=== PATIENT | female | born 1990 | race Two or more races ===

== ENCOUNTER 2018-12-19 12:05 | Inpatient (IN) | payer BC ==
[2018-12-19] MEDS ORDERED: Nalbuphine 20 MG/ML 1 ML Syringe IVPUSH PRN (12:24)
[2018-12-19] MEDS ORDERED: Sodium Chloride 0.9% 10 ML Syringe FLUSH PRN (12:24)
[2018-12-19] MEDS ORDERED: Ondansetron 4 MG/2 ML SDV IVPUSH PRN (12:24)
--- NOTE | 2018-12-19 12:26 | PCM.LDHP ---
L&D History of Present Illness - General Date of Service: 12/19/18 Admit Problem/Dx: Patient Status Order with Admit Dx/Problem 12/19/18 12:24 Patient Status [ADT] Routine Admission Diagnosis/Problem Admission Diagnosis/Problem Normal Source of Information: Patient History Limitations: Reports: No Limitations - History of Present Illness Introduction:: Patient is a 28-year-old at 39-4/7 weeks gestation who was seen in clinic today for complaints of decreased movement. NST with accelerations, but some questionable decelerations. She was counseled on options and did elect to proceed to labor and delivery for induction. She is otherwise doing well currently and with no changes since I saw her in clinic. - Related Data Allergies/Adverse Reactions: Allergies Allergy/AdvReac Type Severity Reaction Status Date / Time No Known Allergies Allergy Verified 12/19/18 13:40 Home Medications: Home Meds Pnv No.122/Iron/Folic Acid [ Multi Tablet] 1 each PO DAILY 12/19/18 [ History] Past Medical History MARBLEIZER History: Reports: : 2 Para: 1 LMP (Approximate): - Past Surgical History Musculoskeletal Surgical History: Reports: Other (See Below) (Procedure on lower leg as a teenager) Social & Family History - Tobacco Use Smoking Status *Q: Never Smoker - Alcohol Use Alcohol Use History: No - Recreational Drug Use Recreational Drug Use: No - Living Situation & Occupation Occupation: Employed H&P Review of Systems - Review of Systems: Review Of Systems: See Below General: Reports: No Symptoms Pulmonary: Reports: No Symptoms Cardiovascular: Reports: No Symptoms Gastrointestinal: Reports: No Symptoms Genitourinary: Reports: Other (slight bloody discharge) Musculoskeletal: Reports: No Symptoms Psychiatric: Reports: No Symptoms Neurological: Reports: No Symptoms L&D Exam - Exam Exam: See Below - OB Specific Contraction Intensity: Irritability Movement: Active Heart Tones: Present Heart Tones per Min: 150 Heart Rate (FHR) Variability: Moderate (6-25 bmp) Presentation: Vertex - Solorzano Score Solorzano Score Cervix Position: Midposition Solorzano Score Consistency: Medium Solorzano Score Effacement: 51-70% Solorzano Score Dilation: 3-4 cm Solorzano Score Infant's Station: -2 Solorzano Score Total: 7 - Exam General: Alert, Oriented, Cooperative Lungs: Clear to Auscultation, Normal Respiratory Effort Cardiovascular: Regular Rate, Regular Rhythm GI/Abdominal Exam: Soft, Non-Tender Genitourinary: Normal external exam Extremities: Normal Inspection Skin: Warm, Dry, Intact - Patient Data Result Diagrams: 12/19/18 12:35 - Problem List (1) 39 weeks gestation of SNOMED Code(s): 22830989 ICD Code: Z3A.39 - 39 WEEKS GESTATION OF Status: Acute Current Visit: Yes (2) Rh negative state in antepartum period SNOMED Code(s): 910568694 ICD Code: O26.899 - OTH RELATED CONDITIONS, UNSPECIFIED TRIMESTER; Z67.91 - UNSPECIFIED BLOOD TYPE, RH NEGATIVE Status: Acute Current Visit: Yes (3) Rubella non-immune status, antepartum SNOMED Code(s): 345133467 ICD Code: O99.89 - OTH DISEASES AND CONDITIONS COMPL PREG/CHLDBRTH; Z28.3 - UNDERIMMUNIZATION STATUS Status: Acute Current Visit: Yes (4) GBS (group B Streptococcus carrier), +RV culture, currently SNOMED Code(s): 4413207184197, 087897948, 5931668632686 ICD Code: O99.820 - STREPTOCOCCUS B CARRIER STATE COMPLICATING Status: Acute Current Visit: Yes Problem List Initiated/Reviewed/Updated: Yes Orders Last 24hrs: Active Orders 24 hr Category Date Time Status Patient Status [ADT] Routine ADT 12/19/18 12:24 Ordered Activity as Tolerated [RC] PFP Care 12/19/18 12:24 Ordered Communication Order [RC] ASDIRECTED Care 12/19/18 12:24 Ordered Heart Tones [RC] ASDIRECTED Care 12/19/18 12:25 Ordered Non Stress Test [RC] PER UNIT ROUTINE Care 12/19/18 12:24 Ordered Notify Provider [RC] PFP Care 12/19/18 12:24 Ordered Notify Provider [RC] PRN Care 12/19/18 12:24 Ordered Peripheral IV Care [RC] . DIRECTED Care 12/19/18 12:25 Ordered Vital Signs [RC] PER UNIT ROUTINE Care 12/19/18 12:24 Ordered Regular Diet [DIET] Diet 12/19/18 Lunch Ordered CBC W/O DIFF,HEMOGRAM [HEME] Routine Lab 12/19/18 12:24 Ordered RAPID PLASMA REAGIN,RPR [CHEM] Routine Lab 12/19/18 12:24 Ordered TYPE AND SCREEN [BBK] Routine Lab 12/19/18 12:24 Ordered Lactated Ringers [Ringers, Lactated] 1,000 ml Med 12/19/18 12:30 Ordered IV ASDIRECTED Nalbuphine [Nubain] Med 12/19/18 12:24 Ordered 10 mg IVPUSH Q2H PRN Ondansetron [Zofran] Med 12/19/18 12:24 Ordered 4 mg IVPUSH Q4H PRN Oxytocin/Lactated Ringers [Pitocin in LR 10 Units/1,000 Med 12/19/18 12:30 Ordered ML] 10 unit in 1,000 ml IV .CONTINUOUS Sodium Chloride 0.9% [Saline Flush] Med 12/19/18 12:24 Ordered 10 ml FLUSH ASDIRECTED PRN Electronic Heart Tones Ext w TOCO [WOMSER] Oth 12/19/18 12:24 Ordered Routine Electronic Heart Tones Internal [WOMSER] Per Unit Oth 12/19/18 12:24 Ordered Routine Peripheral IV Insertion Adult [OM.PC] Routine Oth 12/19/18 12:24 Ordered Resuscitation Status Routine Resus Stat 12/19/18 12:24 Ordered Assessment/Plan Comment:: * Labs to be drawn * GBS positive, will start ampicillin for prophylaxis * AROM and Pitocin for induction * Pain management per patient preference * Anticipate * MMR following delivery * Will assess for need for additional RhoGAM after delivery
[2018-12-19] MEDS ORDERED: Lactated Ringers 1,000 ML IV SCH (12:30)
[2018-12-19] MEDS ORDERED: Oxytocin/Lactated Ringers 10 UNIT/1,000 ML BAG IV SCH ×2 (12:30→14:45)
[2018-12-19] MEDS ORDERED: Sodium Chloride 0.9% 100 ML ONE (12:56)
[2018-12-19] MEDS ORDERED: Ampicillin 2 GM AdvVial IV ONE (12:56)
[2018-12-19] MEDS ORDERED: Ampicillin 2 GM in Sodium Chloride 0.9% 100 ML IV SCH (13:00)
[2018-12-19] MEDS: Ampicillin 1 GM in Sodium Chloride 0.9% 100 ML IV SCH (17:00)
[2018-12-19] MEDS ORDERED: diphenhydrAMINE 50 MG/ML SDV IVPUSH PRN (20:09)
[2018-12-19] MEDS ORDERED: ePHEDrine 50 MG/ML SDV IVPUSH PRN (20:09)
[2018-12-19] MEDS ORDERED: fentaNYL 100 MCG/2 ML SDV EPIDUR PRN (20:09)
[2018-12-19] MEDS ORDERED: Bupivacaine/fentaNYL/NS 100 ML Bag EPIDUR SCH (20:15)
[2018-12-19] MEDS ORDERED: Oxytocin 10 Units/1 ML SDV ONE (20:48)
--- NOTE | 2018-12-19 21:04 | PCM.DEL ---
L & D Note - General Info Date of Service: 12/19/18 - Delivery Note Labor: Induced by ARM, Induced by Oxytocin Delivery Outcome: Livebirth Infant Delivery Method: Spontaneous Vaginal Delivery-Single Infant Delivery Mode: Spontaneous Presentation: Left Occiput Anterior (NATALY) (compound with posterior hand) Nuchal Cord: None Anesthesia Type: None Amniotic Fluid Description: Clear Episiotomy Type: None Laceration: None Placenta: Intact, Spontaneous Cord: 3 Vessels Estimated Blood Loss: 250 [place]: Bulb Syringe, Stimulated, Warmed, [place] Used, Warmer Used Score 1 min: 8 Score 5 min: 9 Delivery Comments (Free Text/Narrative):: Patient found to be complete and began pushing. With maternal pushing effort head delivered from an NATALY presentation. No nuchal cord present. With gentle downward traction the shoulders and body delivered. Infant placed on maternal abdomen. Cord clamped and cut. Cord blood obtained. Placenta allowed time to separate and expelled intact. Inspection of the perineum showed no lacerations. - General Info Date of Service: 12/19/18 - Patient Data Vitals - Most Recent: Last Vital Signs Temp 36.8 C 12/19/18 12:24 Pulse 101 H 12/19/18 12:24 Resp 16 12/19/18 12:24 BP 124/69 12/19/18 12:24 Pulse Ox 98 12/19/18 12:24 Weight - Most Recent: 102.784 kg I&O - Last 24 Hours: Intake & Output 12/19/18 12/19/18 12/19/18 06:59 14:59 22:59 Intake Total 640 Balance 640 Lab Results Last 24 Hours: Laboratory Results - last 24 hr 12/19/18 12/19/18 Range/Units 12:35 12:35 WBC 10.77 H (3.98-10.04) K/mm3 RBC 3.92 L (3.98-5.22) M/mm3 Hgb 10.8 L (11.2-15.7) gm/L Hct 32.7 L (34.1-44.9) % MCV 83.4 (79.4-94.8) fl MCH 27.6 (25.6-32.2) pg MCHC 33.0 (32.2-35.5) g/dl RDW Std Deviation 41.2 (36.4-46.3) fL Plt Count 240 (182-369) K/mm3 MPV 11.6 (9.4-12.3) fl Blood Type AB POSITIVE Gel Antibody Screen Negative Med Orders - Current: Current Medications Diphenhydramine HCl (Benadryl) 25 mg IVPUSH Q6H PRN PRN Reason: pruritis Ephedrine Sulfate (Ephedrine Sulfate) 5 mg IVPUSH ASDIRECTED PRN PRN Reason: Hypotension Fentanyl (Sublimaze) 100 mcg EPIDUR Q3H PRN PRN Reason: Pain Fentanyl/Bupivacaine HCl (Fentanyl/Bupivacaine/Ns 2 Mcg-0.125% 100 Ml) 100 ml EPIDUR ASDIRECTED TEAGAN Lactated Ringer's (Ringers, Lactated) 1,000 mls @ 100 mls/hr IV ASDIRECTED TEAGAN Last Admin: 12/19/18 14:56 Dose: 40 mls/hr Oxytocin/Lactated Ringer's (Pitocin In Lr 10 Units/1,000 Ml) 10 unit in 1,000 mls @ 500 mls/hr IV .CONTINUOUS TEAGAN Ampicillin Sodium 1 gm/ Sodium (Chloride) 100 mls @ 200 mls/hr IV Q4H TEAGAN Last Admin: 12/19/18 17:00 Dose: 200 mls/hr Oxytocin/Lactated Ringer's (Pitocin In Lr 10 Units/1,000 Ml) 10 unit in 1,000 mls @ 12 mls/hr IV TITRATE TEAGAN; Protocol Last Titration: 12/19/18 18:20 Dose: 12 munits/min, 72 mls/hr Nalbuphine HCl (Nubain) 10 mg IVPUSH Q2H PRN PRN Reason: pain Ondansetron HCl (Zofran) 4 mg IVPUSH Q4H PRN PRN Reason: Nausea/Vomiting Sodium Chloride (Saline Flush) 10 ml FLUSH ASDIRECTED PRN PRN Reason: Keep Vein Open Discontinued Medications Ampicillin Sodium (Ampicillin) Confirm Administered Dose 2 gm IV .STK-MED ONE Stop: 12/19/18 12:57 Last Admin: 12/19/18 16:16 Dose: Not Given Ampicillin Sodium 2 gm/ Sodium (Chloride) 100 mls @ 200 mls/hr IV NOW TEAGAN Stop: 12/19/18 14:00 Last Admin: 12/19/18 13:03 Dose: 200 mls/hr Sodium Chloride (Normal Saline) Confirm Administered Dose 100 mls @ as directed .ROUTE .STK-MED ONE Stop: 12/19/18 12:57 Last Admin: 12/19/18 16:16 Dose: Not Given Influenza Virus Vaccine (Pharmacy To Dose - Influenza Vaccine) 1 each IM ONETIME ONE Stop: 12/19/18 13:54 Influenza Virus Vaccine (Fluzone Quad [id number] Syringe) 60 mcg IM .ONCE ONE Stop: 12/19/18 14:16 Oxytocin (Pitocin) Confirm Administered Dose 10 unit .ROUTE .STK-MED ONE Stop: 12/19/18 20:49 - Problem List & Annotations (1) 39 weeks gestation of SNOMED Code(s): 82717735 Code(s): Z3A.39 - 39 WEEKS GESTATION OF Status: Acute Current Visit: Yes (2) Rh negative state in antepartum period SNOMED Code(s): 864537357 Code(s): O26.899 - OTH RELATED CONDITIONS, UNSPECIFIED TRIMESTER; Z67.91 - UNSPECIFIED BLOOD TYPE, RH NEGATIVE Status: Acute Current Visit: Yes (3) Rubella non-immune status, antepartum SNOMED Code(s): 628527221 Code(s): O99.89 - OTH DISEASES AND CONDITIONS COMPL PREG/CHLDBRTH; Z28.3 - UNDERIMMUNIZATION STATUS Status: Acute Current Visit: Yes (4) GBS (group B Streptococcus carrier), +RV culture, currently SNOMED Code(s): 5195738830837, 328162552, 1611516734553 Code(s): O99.820 - STREPTOCOCCUS B CARRIER STATE COMPLICATING Status: Acute Current Visit: Yes (5) Vaginal delivery SNOMED Code(s): 988747832 Code(s): O80 - ENCOUNTER FOR FULL-TERM UNCOMPLICATED DELIVERY Status: Acute Current Visit: No - Problem List Review Problem List Initiated/Reviewed/Updated: Yes - My Orders Last 24 Hours: My Active Orders 12/19/18 12:24 Patient Status [ADT] Routine Activity as Tolerated [RC] PFP Communication Order [RC] ASDIRECTED Notify Provider [RC] PFP Notify Provider [RC] PRN Vital Signs [RC] PER UNIT ROUTINE Nalbuphine [Nubain] 10 mg IVPUSH Q2H PRN Ondansetron [Zofran] 4 mg IVPUSH Q4H PRN Sodium Chloride 0.9% [Saline Flush] 10 ml FLUSH ASDIRECTED PRN Electronic Heart Tones Ext w TOCO [WOMSER] Routine Electronic Heart Tones Internal [WOMSER] Per Unit Routine Peripheral IV Insertion Adult [OM.PC] Routine Resuscitation Status Routine 12/19/18 12:25 Peripheral IV Care [RC] Q2HR 12/19/18 12:30 Lactated Ringers [Ringers, Lactated] 1,000 ml IV ASDIRECTED Oxytocin/Lactated Ringers [Pitocin in LR 10 Units/1,000 ML] 10 unit in 1,000 ml IV .CONTINUOUS 12/19/18 12:35 RAPID PLASMA REAGIN,RPR [CHEM] Routine 12/19/18 13:53 Influenza Vaccine Charge [RC] .DISCHARGE 12/19/18 14:45 Oxytocin/Lactated Ringers [Pitocin in LR 10 Units/1,000 ML] 10 unit in 1,000 ml IV TITRATE 12/19/18 17:00 Ampicillin 1 gm Sodium Chloride 0.9% [Normal Saline] 100 ml IV Q4H 12/19/18 20:58 Patient Status Manage Transfer [TRANSFER] Routine 12/19/18 Lunch Regular Diet [DIET] - Assessment Assessment:: PPD#0 from - Plan Plan:: * Routine cares * Encourage breast feeding * MMR following prior to discharge * Will assess for need for additional RhoGAM - baby blood type pending
[2018-12-19] MEDS ORDERED: Benzocaine/Menthol 20%-0.5% Spray 56 GM Canister TOP PRN (21:20)
[2018-12-19] MEDS ORDERED: Witch Hazel Medicated Pads 100/Jar TOP PRN (21:20)
[2018-12-19] MEDS ORDERED: Docusate Sodium 100 MG Cap PO PRN (21:20)
[2018-12-19] MEDS ORDERED: Acetaminophen 325 MG Tab PO PRN (21:20)
[2018-12-19] MEDS ORDERED: Lanolin 100% Cream 7 GM Tube TOP PRN (21:20)
[2018-12-20] MEDS ORDERED: Oxytocin 10 Units/1 ML SDV IM ONE (01:49)
[2018-12-20] MEDS: Ibuprofen 600 MG Tab PO PRN ×2 (02:47→19:45)
[2018-12-20] MEDS: Ampicillin 1 GM in Sodium Chloride 0.9% 100 ML IV SCH (03:47)
--- NOTE | 2018-12-20 05:15 | PCM.PNPP ---
- General Info Date of Service: 12/20/18 Functional Status: Reports: Pain Controlled - Review of Systems General: Reports: No Symptoms Pulmonary: Reports: No Symptoms Cardiovascular: Reports: No Symptoms Gastrointestinal: Reports: No Symptoms Genitourinary: Reports: No Symptoms Musculoskeletal: Reports: No Symptoms Neurological: Reports: No Symptoms - Patient Data Vital Signs - Most Recent: Last Vital Signs Temp 37.1 C 12/20/18 03:00 Pulse 79 12/20/18 02:41 Resp 16 12/20/18 02:41 BP 115/57 L 12/20/18 02:41 Pulse Ox 99 12/20/18 02:41 Weight - Most Recent: 102.784 kg I&O - Last 24 Hours: Intake & Output 12/19/18 12/19/18 12/20/18 14:59 22:59 06:59 Intake Total 1840 Balance 1840 Lab Results - Last 24 Hours: Laboratory Results - last 24 hr 12/19/18 12/19/18 Range/Units 12:35 12:35 WBC 10.77 H (3.98-10.04) K/mm3 RBC 3.92 L (3.98-5.22) M/mm3 Hgb 10.8 L (11.2-15.7) gm/L Hct 32.7 L (34.1-44.9) % MCV 83.4 (79.4-94.8) fl MCH 27.6 (25.6-32.2) pg MCHC 33.0 (32.2-35.5) g/dl RDW Std Deviation 41.2 (36.4-46.3) fL Plt Count 240 (182-369) K/mm3 MPV 11.6 (9.4-12.3) fl Blood Type AB POSITIVE Gel Antibody Screen Negative Med Orders - Current: Current Medications Acetaminophen (Tylenol) 650 mg PO Q4H PRN PRN Reason: mild pain or fever Benzocaine/Menthol (Dermoplast Pain Relief [place]) 0 gm TOP ASDIRECTED PRN PRN Reason: Perineal Comfort Measure Last Admin: 12/19/18 23:10 Dose: 1 canister Docusate Sodium (Colace) 100 mg PO BID PRN PRN Reason: Constipation Emollient Ointment (Lansinoh Hpa) 0 gm TOP ASDIRECTED PRN PRN Reason: Sore Nipples Ibuprofen (Motrin) 600 mg PO Q6H PRN PRN Reason: Mild pain or fever Last Admin: 12/20/18 02:47 Dose: 600 mg Measles/Mumps/Rubella Vaccine Live (M-M-R Ii Vaccine) 0.5 ml SUBCUT .ONCE ONE Stop: 12/21/18 08:01 Vivek Hameed (Tucks) 1 pad TOP ASDIRECTED PRN PRN Reason: Hemorrhoid pain Last Admin: 12/19/18 23:10 Dose: 1 tub Discontinued Medications Ampicillin Sodium (Ampicillin) Confirm Administered Dose 2 gm IV .STK-MED ONE Stop: 12/19/18 12:57 Last Admin: 12/19/18 16:16 Dose: Not Given Diphenhydramine HCl (Benadryl) 25 mg IVPUSH Q6H PRN PRN Reason: pruritis Ephedrine Sulfate (Ephedrine Sulfate) 5 mg IVPUSH ASDIRECTED PRN PRN Reason: Hypotension Fentanyl (Sublimaze) 100 mcg EPIDUR Q3H PRN PRN Reason: Pain Fentanyl/Bupivacaine HCl (Fentanyl/Bupivacaine/Ns 2 Mcg-0.125% 100 Ml) 100 ml EPIDUR ASDIRECTED TEAGAN Lactated Ringer's (Ringers, Lactated) 1,000 mls @ 100 mls/hr IV ASDIRECTED [facility] Last Admin: 12/19/18 14:56 Dose: 40 mls/hr Oxytocin/Lactated Ringer's (Pitocin In Lr 10 Units/1,000 Ml) 10 unit in 1,000 mls @ 500 mls/hr IV .CONTINUOUS [facility] Ampicillin Sodium 2 gm/ Sodium (Chloride) 100 mls @ 200 mls/hr IV NOW [facility] Stop: 12/19/18 14:00 Last Admin: 12/19/18 13:03 Dose: 200 mls/hr Ampicillin Sodium 1 gm/ Sodium (Chloride) 100 mls @ 200 mls/hr IV Q4H [facility] Last Admin: 12/20/18 03:47 Dose: Not Given Sodium Chloride (Normal Saline) Confirm Administered Dose 100 mls @ as directed .ROUTE .STK-MED ONE Stop: 12/19/18 12:57 Last Admin: 12/19/18 16:16 Dose: Not Given Oxytocin/Lactated Ringer's (Pitocin In Lr 10 Units/1,000 Ml) 10 unit in 1,000 mls @ 12 mls/hr IV TITRATE TEAGAN; Protocol Last Titration: 12/19/18 20:10 Dose: 0 munits/min, 0 mls/hr Influenza Virus Vaccine (Pharmacy To Dose - Influenza Vaccine) 1 each IM ONETIME ONE Stop: 12/19/18 13:54 Influenza Virus Vaccine (Fluzone Quad [id number] Syringe) 60 mcg IM .ONCE ONE Stop: 12/19/18 14:16 Nalbuphine HCl (Nubain) 10 mg IVPUSH Q2H PRN PRN Reason: pain Ondansetron HCl (Zofran) 4 mg IVPUSH Q4H PRN PRN Reason: Nausea/Vomiting Oxytocin (Pitocin) Confirm Administered Dose 10 unit .ROUTE .STK-MED ONE Stop: 12/19/18 20:49 Last Admin: 12/20/18 01:57 Dose: Not Given Oxytocin (Pitocin) 10 unit IM ONETIME ONE Stop: 12/20/18 01:50 Last Admin: 12/20/18 01:54 Dose: 10 unit Sodium Chloride (Saline Flush) 10 ml FLUSH ASDIRECTED PRN PRN Reason: Keep Vein Open - Infant Interaction Infant Disposition, : in Room with Family Infant Interaction: Holding Infant Infant Feeding: Attempted ; Nursed Fair/Poor Support Person: - Recovery Exam Fundal Tone: Firm Fundal Level: 1 Fingerbreadths Below Umbilicus Fundal Placement: Midline Lochia Amount: Small Lochia Color: Rubra/Red Perineum Description: Intact, Minimal Bruising/Swelling Episiotomy/Laceration: None Bladder Status: Voiding Urinary Elimination: Voided - Exam General: Alert, Oriented, Cooperative GI/Abdominal Exam: Soft, Non-Tender Extremities: Normal Inspection Skin: Warm, Dry, Intact - Problem List & Annotations (1) 39 weeks gestation of SNOMED Code(s): 14106403 Code(s): Z3A.39 - 39 WEEKS GESTATION OF Status: Acute Current Visit: Yes (2) Rh negative state in antepartum period SNOMED Code(s): 402081800 Code(s): O26.899 - OTH RELATED CONDITIONS, UNSPECIFIED TRIMESTER; Z67.91 - UNSPECIFIED BLOOD TYPE, RH NEGATIVE Status: Acute Current Visit: Yes (3) Rubella non-immune status, antepartum SNOMED Code(s): 477975363 Code(s): O99.89 - OTH DISEASES AND CONDITIONS COMPL PREG/CHLDBRTH; Z28.3 - UNDERIMMUNIZATION STATUS Status: Acute Current Visit: Yes (4) GBS (group B Streptococcus carrier), +RV culture, currently SNOMED Code(s): 4845181678543, 399779128, 8267767618377 Code(s): O99.820 - STREPTOCOCCUS B CARRIER STATE COMPLICATING Status: Acute Current Visit: Yes (5) Vaginal delivery SNOMED Code(s): 378347304 Code(s): O80 - ENCOUNTER FOR FULL-TERM UNCOMPLICATED DELIVERY Status: Acute Current Visit: No - Problem List Review Problem List Initiated/Reviewed/Updated: Yes - My Orders Last 24 Hours: My Active Orders 12/19/18 12:24 Resuscitation Status Routine 12/19/18 12:35 RAPID PLASMA REAGIN,RPR [CHEM] Routine 12/19/18 13:53 Influenza Vaccine Charge [RC] .DISCHARGE 12/19/18 21:20 Activity as Tolerated [RC] PER UNIT ROUTINE Vital Signs [RC] 21,03,09,15 Acetaminophen [Tylenol] 650 mg PO Q4H PRN Benzocaine/Menthol [Dermoplast Pain Relief [place]] See Dose Instructions TOP ASDIRECTED PRN Docusate Sodium [Colace] 100 mg PO BID PRN Ibuprofen [Motrin] 600 mg PO Q6H PRN Lanolin [Lansinoh HPA] See Dose Instructions TOP ASDIRECTED PRN Witch Zari [Tucks] 1 pad TOP ASDIRECTED PRN Assess Lochia [WOMSER] Per Unit Routine Assess Uterine Involution [WOMSER] Per Unit Routine Breast Pump [WOMSER] Per Unit Routine Heat Therapy [OM.PC] PRN Ice Therapy [OM.PC] Per Unit Routine Perineal Care [OM.PC] Per Unit Routine Peripheral IV Discontinue [OM.PC] Routine Sitz Bath [OM.PC] Per Unit Routine 12/19/18 Dinner Regular Diet [DIET] 12/20/18 21:20 Heat Therapy [OM.PC] PRN 12/21/18 08:00 Measles, Mumps & Rubella [M-M-R II Vaccine] 0.5 ml SUBCUT .ONCE ONE - Assessment Assessment:: PPD#1 from - Plan Plan:: * Routine cares * Encourage breast feeding * MMR following prior to discharge * Baby Rh Negative, no need for Rhogam
--- NOTE | 2018-12-21 06:58 | PCM.PNPP ---
- General Info Date of Service: 12/21/18 Functional Status: Reports: Pain Controlled, Tolerating Diet, Ambulating, Urinating - Review of Systems General: Reports: No Symptoms Pulmonary: Reports: No Symptoms Cardiovascular: Reports: No Symptoms Gastrointestinal: Reports: No Symptoms Genitourinary: Reports: No Symptoms Musculoskeletal: Reports: No Symptoms Neurological: Reports: No Symptoms - Patient Data Vital Signs - Most Recent: Last Vital Signs Temp 36.7 C 12/21/18 03:01 Pulse 72 12/21/18 03:01 Resp 14 12/21/18 03:01 BP 128/59 L 12/21/18 03:01 Pulse Ox 99 12/21/18 03:01 Weight - Most Recent: 102.784 kg I&O - Last 24 Hours: Intake & Output 12/20/18 12/20/18 12/21/18 14:59 22:59 06:59 Intake Total 240 Balance 240 Lab Results - Last 24 Hours: Laboratory Results - last 24 hr 12/19/18 Range/Units 12:35 RPR Non-reactive (NONREACTIVE) Med Orders - Current: Current Medications Acetaminophen (Tylenol) 650 mg PO Q4H PRN PRN Reason: mild pain or fever Benzocaine/Menthol (Dermoplast Pain Relief [place]) 0 gm TOP ASDIRECTED PRN PRN Reason: Perineal Comfort Measure Last Admin: 12/19/18 23:10 Dose: 1 canister Docusate Sodium (Colace) 100 mg PO BID PRN PRN Reason: Constipation Emollient Ointment (Lansinoh Hpa) 0 gm TOP ASDIRECTED PRN PRN Reason: Sore Nipples Ibuprofen (Motrin) 600 mg PO Q6H PRN PRN Reason: Mild pain or fever Last Admin: 12/20/18 19:45 Dose: 600 mg Measles/Mumps/Rubella Vaccine Live (M-M-R Ii Vaccine) 0.5 ml SUBCUT .ONCE ONE Stop: 12/21/18 08:01 Witch Zari (Tucks) 1 pad TOP ASDIRECTED PRN PRN Reason: Hemorrhoid pain Last Admin: 12/19/18 23:10 Dose: 1 tub Discontinued Medications Ampicillin Sodium (Ampicillin) Confirm Administered Dose 2 gm IV .STK-MED ONE Stop: 12/19/18 12:57 Last Admin: 12/19/18 16:16 Dose: Not Given Diphenhydramine HCl (Benadryl) 25 mg IVPUSH Q6H PRN PRN Reason: pruritis Ephedrine Sulfate (Ephedrine Sulfate) 5 mg IVPUSH ASDIRECTED PRN PRN Reason: Hypotension Fentanyl (Sublimaze) 100 mcg EPIDUR Q3H PRN PRN Reason: Pain Fentanyl/Bupivacaine HCl (Fentanyl/Bupivacaine/Ns 2 Mcg-0.125% 100 Ml) 100 ml EPIDUR ASDIRECTED TEAGAN Lactated Ringer's (Ringers, Lactated) 1,000 mls @ 100 mls/hr IV ASDIRECTED TEAGAN Last Admin: 12/19/18 14:56 Dose: 40 mls/hr Oxytocin/Lactated Ringer's (Pitocin In Lr 10 Units/1,000 Ml) 10 unit in 1,000 mls @ 500 mls/hr IV .CONTINUOUS TEAGAN Ampicillin Sodium 2 gm/ Sodium (Chloride) 100 mls @ 200 mls/hr IV NOW TEAGAN Stop: 12/19/18 14:00 Last Admin: 12/19/18 13:03 Dose: 200 mls/hr Ampicillin Sodium 1 gm/ Sodium (Chloride) 100 mls @ 200 mls/hr IV Q4H TEAGAN Last Admin: 12/20/18 03:47 Dose: Not Given Sodium Chloride (Normal Saline) Confirm Administered Dose 100 mls @ as directed .ROUTE .K-MED ONE Stop: 12/19/18 12:57 Last Admin: 12/19/18 16:16 Dose: Not Given Oxytocin/Lactated Ringer's (Pitocin In Lr 10 Units/1,000 Ml) 10 unit in 1,000 mls @ 12 mls/hr IV TITRATE TEAGAN; Protocol Last Titration: 12/19/18 20:10 Dose: 0 munits/min, 0 mls/hr Influenza Virus Vaccine (Pharmacy To Dose - Influenza Vaccine) 1 each IM ONETIME ONE Stop: 12/19/18 13:54 Influenza Virus Vaccine (Fluzone Quad [id number] Syringe) 60 mcg IM .ONCE ONE Stop: 12/19/18 14:16 Last Admin: 12/20/18 22:51 Dose: Not Given Nalbuphine HCl (Nubain) 10 mg IVPUSH Q2H PRN PRN Reason: pain Ondansetron HCl (Zofran) 4 mg IVPUSH Q4H PRN PRN Reason: Nausea/Vomiting Oxytocin (Pitocin) Confirm Administered Dose 10 unit .ROUTE .STK-MED ONE Stop: 12/19/18 20:49 Last Admin: 12/20/18 01:57 Dose: Not Given Oxytocin (Pitocin) 10 unit IM ONETIME ONE Stop: 12/20/18 01:50 Last Admin: 12/20/18 01:54 Dose: 10 unit Sodium Chloride (Saline Flush) 10 ml FLUSH ASDIRECTED PRN PRN Reason: Keep Vein Open - Interaction Disposition, : [place] in Room with Family Infant Interaction: Holding Infant Feeding: Breastfed ; Nursed Well Support Person: - Recovery Exam Fundal Tone: Firm Fundal Level: 1 Fingerbreadths Below Umbilicus Fundal Placement: Midline Lochia Amount: Scant Lochia Color: Rubra/Red Perineum Description: Intact, Minimal Bruising/Swelling Episiotomy/Laceration: None Bladder Status: Voiding Urinary Elimination: Voided - Exam General: Alert, Oriented, Cooperative GI/Abdominal Exam: Soft, Non-Tender Extremities: Normal Inspection Skin: Warm, Dry, Intact - Problem List & Annotations (1) 39 weeks gestation of SNOMED Code(s): 49930296 Code(s): Z3A.39 - 39 WEEKS GESTATION OF Status: Acute Current Visit: Yes (2) Rh negative state in antepartum period SNOMED Code(s): 262522358 Code(s): O26.899 - OTH RELATED CONDITIONS, UNSPECIFIED TRIMESTER; Z67.91 - UNSPECIFIED BLOOD TYPE, RH NEGATIVE Status: Acute Current Visit: Yes (3) Rubella non-immune status, antepartum SNOMED Code(s): 340373533 Code(s): O99.89 - OTH DISEASES AND CONDITIONS COMPL PREG/CHLDBRTH; Z28.3 - UNDERIMMUNIZATION STATUS Status: Acute Current Visit: Yes (4) GBS (group B Streptococcus carrier), +RV culture, currently SNOMED Code(s): 2982218853396, 560826303, 5050213353768 Code(s): O99.820 - STREPTOCOCCUS B CARRIER STATE COMPLICATING Status: Acute Current Visit: Yes (5) Vaginal delivery SNOMED Code(s): 137029565 Code(s): O80 - ENCOUNTER FOR FULL-TERM UNCOMPLICATED DELIVERY Status: Acute Current Visit: No - Problem List Review Problem List Initiated/Reviewed/Updated: Yes - My Orders Last 24 Hours: My Active Orders 12/20/18 21:20 Heat Therapy [OM.PC] PRN 12/21/18 06:58 Ready for Discharge [RC] PER UNIT ROUTINE 12/21/18 08:00 Measles, Mumps & Rubella [M-M-R II Vaccine] 0.5 ml SUBCUT .ONCE ONE - Assessment Assessment:: PPD#2 from - Plan Plan:: * Routine cares * Encourage breast feeding * MMR prior to discharge * Baby Rh Negative, no need for Rhogam * Discharge home today
--- NOTE | 2018-12-21 06:59 | PCM.DCSUM1 ---
Discharge Summary - Discharge Data Discharge Date: 12/21/18 Discharge Disposition: Home, Self-Care 01 Condition: Good - Discharge Diagnosis/Problem(s) (1) 39 weeks gestation of SNOMED Code(s): 77421035 ICD Code: Z3A.39 - 39 WEEKS GESTATION OF Status: Acute Current Visit: Yes (2) Rh negative state in antepartum period SNOMED Code(s): 442116461 ICD Code: O26.899 - OTH RELATED CONDITIONS, UNSPECIFIED TRIMESTER; Z67.91 - UNSPECIFIED BLOOD TYPE, RH NEGATIVE Status: Acute Current Visit: Yes (3) Rubella non-immune status, antepartum SNOMED Code(s): 923978064 ICD Code: O99.89 - OTH DISEASES AND CONDITIONS COMPL PREG/CHLDBRTH; Z28.3 - UNDERIMMUNIZATION STATUS Status: Acute Current Visit: Yes (4) GBS (group B Streptococcus carrier), +RV culture, currently SNOMED Code(s): 8271348347494, 261818445, 6728659918740 ICD Code: O99.820 - STREPTOCOCCUS B CARRIER STATE COMPLICATING Status: Acute Current Visit: Yes (5) Vaginal delivery SNOMED Code(s): 533884723 ICD Code: O80 - ENCOUNTER FOR FULL-TERM UNCOMPLICATED DELIVERY Status: Acute Current Visit: No - Patient Summary/Data Complications: None Consults: None Recommended Follow-up Testing/Procedures: Follow up in 3-5 weeks for check Hospital Course: 28 y/o who presented at 39 4/7 wks for IOL after findings in clinic of potential decelerations on NST and complaints of decreased FM. Induction was done with pitocin and AROM. She progressed well to complete dilation and underwent an uncomplicated . See delivery note. she did well and was discharged home on PPD#2 - Patient Instructions Diet: Regular Diet as Tolerated Activity: As Tolerated Activity, Other: Pelvic rest for 6 weeks Driving: May Drive Today Showering/Bathing: May Shower Showering/Bathing, Other: May Bathe Notify Provider of: Fever, Increased Pain, Swelling and Redness, Drainage, Nausea and/or Vomiting - Discharge Plan *PRESCRIPTION DRUG MONITORING PROGRAM REVIEWED*: Not Applicable *COPY OF PRESCRIPTION DRUG MONITORING REPORT IN PATIENT ALCON: Not Applicable Home Medications: Home Meds Pnv No.122/Iron/Folic Acid [ Multi Tablet] 1 each PO DAILY 12/19/18 [ History] Docusate Sodium [Colace] 100 mg PO BID PRN cap 12/20/18 [Rx] Ibuprofen [Motrin] 600 mg PO Q6H PRN tablet 12/20/18 [Rx] Referrals: Chel Worrell MD [Primary Care Provider] - (3-5 weeks for check) - Discharge Summary/Plan Comment DC Time >30 min.: No - Patient Data Vitals - Most Recent: Last Vital Signs Temp 36.7 C 12/21/18 03:01 Pulse 72 12/21/18 03:01 Resp 14 12/21/18 03:01 BP 128/59 L 12/21/18 03:01 Pulse Ox 99 12/21/18 03:01 Weight - Most Recent: 102.784 kg I&O - Last 24 hours: Intake & Output 12/20/18 12/20/18 12/21/18 14:59 22:59 06:59 Intake Total 240 Balance 240 Lab Results - Last 24 hrs: Laboratory Results - last 24 hr 12/19/18 Range/Units 12:35 RPR Non-reactive (NONREACTIVE) Med Orders - Current: Current Medications Acetaminophen (Tylenol) 650 mg PO Q4H PRN PRN Reason: mild pain or fever Benzocaine/Menthol (Dermoplast Pain Relief [place]) 0 gm TOP ASDIRECTED PRN PRN Reason: Perineal Comfort Measure Last Admin: 12/19/18 23:10 Dose: 1 canister Docusate Sodium (Colace) 100 mg PO BID PRN PRN Reason: Constipation Emollient Ointment (Lansinoh Hpa) 0 gm TOP ASDIRECTED PRN PRN Reason: Sore Nipples Ibuprofen (Motrin) 600 mg PO Q6H PRN PRN Reason: Mild pain or fever Last Admin: 12/20/18 19:45 Dose: 600 mg Measles/Mumps/Rubella Vaccine Live (M-M-R Ii Vaccine) 0.5 ml SUBCUT .ONCE ONE Stop: 12/21/18 08:01 Witch Zari (Tucks) 1 pad TOP ASDIRECTED PRN PRN Reason: Hemorrhoid pain Last Admin: 12/19/18 23:10 Dose: 1 tub Discontinued Medications Ampicillin Sodium (Ampicillin) Confirm Administered Dose 2 gm IV .STK-[facility] ONE Stop: 12/19/18 12:57 Last Admin: 12/19/18 16:16 Dose: Not Given Diphenhydramine HCl (Benadryl) 25 mg IVPUSH Q6H PRN PRN Reason: pruritis Ephedrine Sulfate (Ephedrine Sulfate) 5 mg IVPUSH ASDIRECTED PRN PRN Reason: Hypotension Fentanyl (Sublimaze) 100 mcg EPIDUR Q3H PRN PRN Reason: Pain Fentanyl/Bupivacaine HCl (Fentanyl/Bupivacaine/Ns 2 Mcg-0.125% 100 Ml) 100 ml EPIDUR ASDIRECTED TEAGAN Lactated Ringer's (Ringers, Lactated) 1,000 mls @ 100 mls/hr IV ASDIRECTED TEAGAN Last Admin: 12/19/18 14:56 Dose: 40 mls/hr Oxytocin/Lactated Ringer's (Pitocin In Lr 10 Units/1,000 Ml) 10 unit in 1,000 mls @ 500 mls/hr IV .CONTINUOUS [facility] Ampicillin Sodium 2 gm/ Sodium (Chloride) 100 mls @ 200 mls/hr IV NOW TEAGAN Stop: 12/19/18 14:00 Last Admin: 12/19/18 13:03 Dose: 200 mls/hr Ampicillin Sodium 1 gm/ Sodium (Chloride) 100 mls @ 200 mls/hr IV Q4H [facility] Last Admin: 12/20/18 03:47 Dose: Not Given Sodium Chloride (Normal Saline) Confirm Administered Dose 100 mls @ as directed .ROUTE .STK-MED ONE Stop: 12/19/18 12:57 Last Admin: 12/19/18 16:16 Dose: Not Given Oxytocin/Lactated Ringer's (Pitocin In Lr 10 Units/1,000 Ml) 10 unit in 1,000 mls @ 12 mls/hr IV TITRATE TEAGAN; Protocol Last Titration: 12/19/18 20:10 Dose: 0 munits/min, 0 mls/hr Influenza Virus Vaccine (Pharmacy To Dose - Influenza Vaccine) 1 each IM ONETIME ONE Stop: 12/19/18 13:54 Influenza Virus Vaccine (Fluzone Quad [id number] Syringe) 60 mcg IM .ONCE ONE Stop: 12/19/18 14:16 Last Admin: 12/20/18 22:51 Dose: Not Given Nalbuphine HCl (Nubain) 10 mg IVPUSH Q2H PRN PRN Reason: pain Ondansetron HCl (Zofran) 4 mg IVPUSH Q4H PRN PRN Reason: Nausea/Vomiting Oxytocin (Pitocin) Confirm Administered Dose 10 unit .ROUTE .STK-MED ONE Stop: 12/19/18 20:49 Last Admin: 12/20/18 01:57 Dose: Not Given Oxytocin (Pitocin) 10 unit IM ONETIME ONE Stop: 12/20/18 01:50 Last Admin: 12/20/18 01:54 Dose: 10 unit Sodium Chloride (Saline Flush) 10 ml FLUSH ASDIRECTED PRN PRN Reason: Keep Vein Open
[2018-12-21] MEDS ORDERED: Measles, Mumps & Rubella Vaccine 0.5 ML SDV SUBCUT ONE (08:00)
[2018-12-21 09:58] VITALS: BP 106/57
== END 2018-12-21 13:13 | disposition home or self-care (01) | DRG 560 ==
LOC: JD.OB 12:05 → OBSVTOIN 20:14 → JD.OB 20:14
PROVIDERS: ADMIT Obstetrics & Gynecology; ATTEND Obstetrics & Gynecology
PROC: 10E0XZZ Delivery of Products of Conception, External Approach (ICD-10-PCS; principal; 2018-12-19)
PROC: 10907ZC Drainage of Amniotic Fluid, Therapeutic from Products of Conception, Via Natural or Artificial Opening (ICD-10-PCS; principal; 2018-12-19)
PROC: 3E033VJ Introduction of Other Hormone into Peripheral Vein, Percutaneous Approach (ICD-10-PCS; principal; 2018-12-19)
PROC: 6A550ZT Pheresis of Cord Blood Stem Cells, Single (ICD-10-PCS; principal; 2018-12-19)
DX: O99.824 Streptococcus B carrier state complicating childbirth (principal); O76 Abnormality in fetal heart rate and rhythm complicating labor and delivery; O36.8130 Decreased fetal movements, third trimester, not applicable or unspecified; O32.6XX0 Maternal care for compound presentation, not applicable or unspecified; Z3A.39 39 weeks gestation of pregnancy; Z37.0 Single live birth
CPT/HCPCS: 36415; 59025; 59409; 85027; 86592; 86850; 86900; 86901; A9270-GY; J0290; J2590; J7030; J7120

== ENCOUNTER 2020-11-20 11:57 | Emergency (ER) | payer BC, OTHER ==
[2020-11-20 12:08] VITALS: BP 117/70; PULSE 70
--- NOTE | 2020-11-20 12:26 | EDM.PDOC ---
ED HPI GENERAL MEDICAL PROBLEM - General Chief Complaint: Chest Pain Stated Complaint: CHEST TIGHTNESS/L ARM NUMB Time Seen by Provider: 11/20/20 12:10 Source of Information: Reports: Patient History Limitations: Reports: No Limitations - History of Present Illness INITIAL COMMENTS - FREE TEXT/NARRATIVE: 29-year-old female presents to the emergency department with complaints of left chest pain. She states this episode started last evening when she was laying on her left side watching TV. She states she has noted that she develops intermittent left-sided chest pain with radiation down her left arm and tingling into her bicep this has been ongoing for the past couple of months. She states she relates it to high stress in her work and personal life. However she states she came in today to be seen as it has not gone away since last evening. Denies any significant cardiac history. Denies any shortness of breath, fever, chills, nausea, vomiting, diaphoresis with these episodes. She does report that she does take control pills but does not smoke. Left Chest Pain Score (Numeric/FACES): 3 - Related Data Allergies Allergy/AdvReac Type Severity Reaction Status Date / Time No Known Allergies Allergy Verified 11/20/20 12:08 Home Meds: Home Meds . 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 Denies: Diaphoresis HEENT: Reports: No Symptoms Respiratory: Reports: No Symptoms. Denies: Shortness of Breath, Pleuritic Chest Pain, Cough, Sputum Cardiovascular: Reports: Chest Pain (Left chest). Denies: Dyspnea on Exertion, Edema, Lightheadedness, Orthopnea, Palpitations Endocrine: Reports: No Symptoms GI/Abdominal: Reports: No Symptoms : Reports: No Symptoms Musculoskeletal: Reports: No Symptoms Skin: Reports: No Symptoms Neurological: Reports: Numbness, Tingling (On occasion left upper extremity) Psychiatric: Reports: No Symptoms Hematologic/Lymphatic: Reports: No Symptoms Immunologic: Reports: No Symptoms ED EXAM, GENERAL - Physical Exam Exam: See Below Exam Limited By: No Limitations General Appearance: Alert, WD/WN, No Apparent Distress Eye Exam: Bilateral Eye: PERRL Ears: Hearing Grossly Normal Nose: Normal Inspection Throat/Mouth: Normal Voice, No Airway Compromise Head: Atraumatic, Normocephalic Neck: Normal Inspection, Supple, Non-Tender, Full Range of Motion Respiratory/Chest: No Respiratory Distress, Lungs Clear, Normal Breath Sounds, No Accessory Muscle Use, Chest Non-Tender Cardiovascular: Normal Peripheral Pulses, Regular Rate, Rhythm, No Edema, No Murmur Peripheral Pulses: 2+: Radial (L), Radial (R), Dorsalis Pedis (L), Dorsalis Pedis (R) GI/Abdominal: Normal Bowel Sounds, Soft, Non-Tender, No Distention (Female) Exam: Deferred Rectal (Female) Exam: Deferred Back Exam: Normal Inspection, Full Range of Motion Extremities: Normal Inspection, Normal Range of Motion, Non-Tender, No Pedal Edema, Normal Capillary Refill Neurological: Alert, Oriented, Normal Cognition Psychiatric: Normal Affect, Normal Mood Skin Exam: Warm, Dry, Intact, Normal Color, No Rash Lymphatic: No Adenopathy #1 Interpretation EKG Date: 11/20/20 Time: 12:06 Rhythm: NSR Rate (Beats/Min): 74 [place]: Normal P-Wave: Present QRS: Normal QT: Normal Comparison: NA - No Prior EKG EKG Interpretation Comments: EKG interpretation per Dr. Muhammad: Sinus rhythm with ST depression several V3 through V4 questioning V5 Course - Vital Signs Text/Narrative:: Patient's physical assessment is virtually unremarkable. She states that the pain down her arm has decreased significantly and there is no longer numbness noted. There is also no reproducible pain with palpation. I have ordered a chest x-ray, EKG, CBC, CMP, troponin and a TSH as patient states she has gained a significant amount of weight in the last month. Last Recorded V/S: Last Vital Signs Temp 99.1 F 11/20/20 12:04 Pulse 70 11/20/20 12:04 Resp 16 11/20/20 12:04 BP 117/70 11/20/20 12:04 Pulse Ox 100 11/20/20 12:04 - Orders/Labs/Meds Orders: Active Orders 24 hr Category Date Time Status EKG Documentation Completion [RC] STAT Care 11/20/20 12:11 Active Chest 1V Frontal [CR] Stat Exams 11/20/20 12:11 Taken Labs: Laboratory Tests 11/20/20 11/20/20 Range/Units 12:24 12:24 WBC 5.13 (3.98-10.04) K/mm3 RBC 4.59 (3.98-5.22) M/mm3 Hgb 12.9 D (11.2-15.7) gm/dl Hct 39.7 (34.1-44.9) % MCV 86.5 D (79.4-94.8) fl MCH 28.1 (25.6-32.2) pg MCHC 32.5 (32.2-35.5) g/dl RDW Std Deviation 42.9 (36.4-46.3) fL Plt Count 260 (182-369) K/mm3 MPV 10.9 (9.4-12.3) fl Neut % (Auto) 57.6 (34.0-71.1) % Lymph % (Auto) 31.8 (19.3-51.7) % [place] % (Auto) 8.4 (4.7-12.5) % Eos % (Auto) 1.8 (0.7-5.8) Baso % (Auto) 0.2 (0.1-1.2) % Neut # (Auto) 2.96 (1.56-6.13) K/mm3 Lymph # (Auto) 1.63 (1.18-3.74) K/mm3 [place] # (Auto) 0.43 H (0.24-0.36) K/mm3 Eos # (Auto) 0.09 (0.04-0.36) K/mm3 Baso # (Auto) 0.01 (0.01-0.08) K/mm3 Sodium 140 (136-145) mEq/L Potassium 3.8 (3.5-5.1) mEq/L Chloride 104 (98-107) mEq/L Carbon Dioxide 26 (21-32) mEq/L Anion Gap 13.8 (5-15) BUN 9 (7-18) mg/dL Creatinine 0.7 (0.55-1.02) mg/dL Est Cr Clr Drug Dosing 107.67 mL/min Estimated GFR (MDRD) > 60 (>60) mL/min BUN/Creatinine Ratio 12.9 L (14-18) Glucose 90 (74-106) mg/dL Calcium 9.2 (8.5-10.1) mg/dL Magnesium 1.9 (1.8-2.4) mg/dl Total Bilirubin 0.3 (0.2-1.0) mg/dL AST 14 L (15-37) U/L ALT 28 (14-59) U/L Alkaline Phosphatase 46 (46-116) U/L Troponin I < 0.017 (0.00-0.056) ng/mL Total Protein 8.1 (6.4-8.2) g/dl Albumin 3.9 (3.4-5.0) g/dl Globulin 4.2 gm/dL Albumin/Globulin Ratio 0.9 L (1-2) TSH 3rd Generation 1.223 (0.358-3.74) uIU/mL - Re-Assessments/Exams Free Text/Narrative Re-Assessment/Exam: 11/20/20 12:53 Nothing acute is appreciated on portable chest x-ray 11/20/20 13:28 CBC and chemistries are unremarkable. Troponin less than 0.017, and TSH is 1.223. Patient's chest pain is likely due to high stress and anxiety. Recommend she followed up with her primary care provider Dr. Stephenson. Will be discharged to home. Departure - Departure Time of Disposition: 13:30 Disposition: Home, Self-Care 01 Condition: Good Clinical Impression: Atypical chest pain Instructions: Nonspecific Chest Pain, Adult, [id number] Referrals: Chel Worrell MD [Primary Care Provider] - Forms: ED Department Discharge Additional Instructions: You were seen in the emergency department with complaints of left-sided chest pain with radiation down the arm with numbness and tingling. Cardiac work-up is unremarkable. Your chest x-ray is normal. EKG is normal. And labs are unremarkable including your TSH level. Recommend that you follow-up with your primary care provider should these symptoms persist. Should your condition worsen or change please return to the emergency department Sepsis Event Note (ED) - Evaluation Sepsis Screening Result: No Definite Risk - Focused Exam Vital Signs: Vital Signs Temp Pulse Resp BP Pulse Ox 11/20/20 12:04 99.1 F 70 16 117/70 100 - My Orders Last 24 Hours: My Active Orders 11/20/20 12:11 EKG Documentation Completion [RC] STAT Chest 1V Frontal [CR] Stat - Assessment/Plan Last 24 Hours: My Active Orders 11/20/20 12:11 EKG Documentation Completion [RC] STAT Chest 1V Frontal [CR] Stat
--- NOTE | 2020-11-21 15:11 | CR ---
Chest: Portable view of the chest was obtained. Comparison: No prior chest imaging is available. Heart size and mediastinum are normal. Lungs are clear with no acute parenchymal change. Bony structures show nothing acute. Impression: 1. Nothing acute is seen on portable chest x-ray. Diagnostic code #1
== END 2020-11-20 13:40 | disposition home or self-care (01) ==
LOC: JD.ED 11:57
DX: R07.89 Other chest pain (principal)
CPT/HCPCS: 36415; 71045; 71045-26; 80053; 83735; 84443; 84484; 85025; 93005; 93010; 99283; 99285-25